=== PATIENT | female | born 1980 | race Caucasian/White ===

== ENCOUNTER 2021-02-11 16:54 | Emergency (ER) | payer BC ==
--- NOTE | 2021-02-11 19:50 | RAD REPORT ---
EXAM DESCRIPTION: RAD - Chest Single View - 02/11/2021 7:36 pm CLINICAL HISTORY: Chest pain;Palpitations COMPARISON: None TECHNIQUE: AP portable chest image was obtained 02/11/2021 7:36 pm . FINDINGS: Lungs are clear. Heart and vasculature are normal. No measurable pleural effusion and no p neumothorax. No acute bony abnormality seen. No acute aortic findings suspected. IMPRESSION: No acute cardiopulmonary process.
[2021-02-11 19:53] LABS: Urine Blood Trace-intact (Negative); Urine Glucose Negative (Negative); Urine Protein Negative (Negative)
[2021-02-11 20:01] LABS: ALT/SGPT 64 U/L (12-78); AST/SGOT 40 U/L (15-37); Albumin 4.2 g/dL (3.4-5.0); Alkaline Phosphatase 62 U/L (45-117); BUN Blood Urea Nitrogen 16 mg/dL (7-18); Bicarbonate 26 mmol/L (21-32); Bilirubin Direct 0.2 mg/dL (0-0.2); Bilirubin Total 0.7 mg/dL (0.2-1.0); Glucose Level 89 mg/dL (74-106); Magnesium 2.2 mg/dL (1.8-2.4); NT PRO-BNP 23 pg/mL (<125); Potassium 3.8 mmol/L (3.5-5.1); Protein, Total 7.7 g/dL (6.4-8.2); Sodium Level 140 mmol/L (136-145); Troponin (Emerg Dept Use Only) < 0.02 ng/mL (0.0-0.045)
[2021-02-11 20:03] LABS: Protime INR 1.09
[2021-02-11 20:05] LABS: Absolute Lymphocytes (CBC) 1.9 K/uL (0.7-4.9); Basophils % 0.9 % (0-1.3); Hematocrit 42.1 % (36.0-45.0); Lymphocytes % 20.9 % (15.3-44.8); MPV 10.6 fL (7.6-11.3); RBC Red Blood Cell Count 4.94 M/uL (3.86-4.86)
[2021-02-11] MEDS ORDERED: METOPROLOL TAR 25 MG TAB ONE (20:52)
[2021-02-11] MEDS ORDERED: NA CHLORIDE 0.9% 1,000 ML ONE ×2 (20:53→22:05)
--- NOTE | 2021-02-11 21:12 | RAD REPORT ---
EXAM DESCRIPTION: CT - Chest For Pe Angio - 02/11/2021 9:02 pm CLINICAL HISTORY: Chest pain;SOB;Palpitations COMPARISON: Chest Single View dated 02/11/2021 TECHNIQUE: Dynamically enhanced 3 mm thick images of the chest were obtained during administration o f approximately 150mL Isovue 370 IV contrast. Coronal and oblique MIP reconstruction images were gene rated and reviewed. Exam utilizes a protocol to evaluate the pulmonary arterial tree. All CT scans are performed using dose optimization technique as appropriate and may include automated exposure control or mA/KV adjustment according to patient size. FINDINGS: No pulmonary emboli are identified. The aorta as imaged shows no acute or suspicious finding. No pericardial thickening or effusion. No infiltrate or mass in the lung parenchyma. No pleural effusion or pleural thickening. No mediastinal or hilar suspicious masses. No chest wall masses or abnormal axillary lymphadenopathy. Limited upper abdomen imaging shows diffuse fatty infiltration of the liver. IMPRESSION: No pulmonary emboli identified. No other significant or suspicious findings.
--- NOTE | 2021-02-11 22:40 | ER ---
Nurse's Notes [facility] Name: Maame Field Age: 40 yrs Sex: Female : 1980 Arrival Date: 02/11/2021 Time: 16:56 Bed 7 Private MD: Diagnosis: Palpitations Presentation: 02/11 17:09 Chief complaint: Patient states: my heart is racing and my blood pressure is pretty tw2 high, i did talk to my side door man and send him a report by my watch and he said it was fine except my heart rate, but there is no reason for it to be that high, i have had some tightness in my chest. Coronavirus screen: At this time, the client does not indicate any symptoms associated with coronavirus-19. Ebola Screen: Patient denies travel to an Ebola-affected area in the 21 days before illness onset. Initial Sepsis Screen: Does the patient meet any 2 criteria? HR > 90 bpm. No. Patient's initial sepsis screen is negative. Does the patient have a suspected source of infection? No. Patient's initial sepsis screen is negative. Risk Assessment: Do you want to hurt yourself or someone else? Patient reports no desire to harm self or others. Onset of symptoms was February 11, 2021. 17:09 Method Of Arrival: Ambulatory tw2 17:11 Chief complaint: Patient states: the high heart rate started about 2 hours ago, i have tw2 been having palpitations for 2 weeks, i have a bad shoulder and have had a lumpectomy on that side so it was hard for me to determine what is what. 17:27 Acuity: LITA 2 tw2 Triage Assessment: 17:12 General: Appears well groomed, Behavior is anxious, crying. Pain: Complains of pain in tw2 chest. 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 wh Historical: - Allergies: 17:27 Augmentin (Upset stomach); tw2 - Home Meds: 17:27 cyclobenzaprine 5 mg Oral tab 1 tab 3 times per day [Active]; naproxen 500 mg Oral tab tw2 1 tab 2 times per day [Active]; omeprazole 40 mg Oral cpDR 1 cap once daily [Active]; tramadol 50 mg Oral tab 1 tab every 4-6 hours [Active]; rizatriptan 10 mg oral tab 1 tab [Active]; cholestoff plus 900 mg plant sterols \T\ stanols per serving, 2 capsules once a day [Active]; Vitamin D-3 with Aloe 120-1,000-10 mg-unit-mg oral tab [Active]; Celebrex 200 mg Oral cap 1 cap 2 times per day [Active]; Enbrel 50 mg/mL (0.98 mL) subcutaneous syrg 1 mL once wkly [Active]; metoprolol succinate 25 mg oral Tb24 1 tab once daily [Active]; Zyrtec 10 mg oral cap [Active]; - PMHx: 17:27 high heart rate; palpitations; ankylosing spondylitis; tw2 - PSHx: 17:27 partial hysterectomy; hip scope; lymphectomy LEFT side; tw2 - Immunization history:: Adult Immunizations. - Social history:: Smoking status: Patient denies any tobacco usage or history of. Patient uses alcohol, occasionally. Screenin:42 Abuse screen: Denies threats or abuse. Denies injuries from another. Nutritional mg2 screening: No deficits noted. Tuberculosis screening: No symptoms or risk factors identified. Fall Risk IV access (20 points). Assessment: 21:41 General: Appears in no apparent distress. comfortable, Behavior is calm, cooperative. mg2 Pain: Denies pain. Neuro: Level of Consciousness is awake, alert, obeys commands, Oriented to person, place, time, situation. Cardiovascular: Capillary refill < 3 seconds Patient's skin is warm and dry. Cardiovascular: Reports palpitations. Respiratory: Airway is patent Respiratory effort is even, unlabored, Respiratory pattern is regular, symmetrical. GI: No signs and/or symptoms were reported involving the gastrointestinal system. : No signs and/or symptoms were reported regarding the genitourinary system. EENT: No signs and/or symptoms were reported regarding the EENT system. Derm: Skin is intact, is healthy with good turgor, Skin is pink, warm \T\ dry. normal. Musculoskeletal: Circulation, motion, and sensation intact. Capillary refill < 3 seconds. 23:21 Reassessment: Patient appears in no apparent distress at this time. Patient and/or wh family updated on plan of care and expected duration. Pain level reassessed. Patient is alert, oriented x 3, equal unlabored respirations, skin warm/dry/pink. Vital Signs: 17:09 BP 139 / 88; Pulse 138; Resp 19; Temp 97.9(TE); Pulse Ox 100% on R/A; Weight 86.18 kg tw2 (R); Height 5 ft. 6 in. (167.64 cm); 21:40 BP 131 / 87; Pulse 110; Resp 18; Pulse Ox 97% on R/A; mg2 23:22 BP 112 / 83; Pulse 91; Resp 18; Pulse Ox 99% on R/A; wh 17:09 Body Mass Index 30.67 (86.18 kg, 167.64 cm) tw2 ED Course: 16:56 Patient arrived in ED. mr 17:11 Triage completed. tw2 17:27 Arm band placed on. tw2 18:37 John Burgess PA is PHCP. cp 18:37 Pelon Bernla MD is Attending Physician. cp 19:17 Saurabh Koehler MD is Attending Physician. cp 19:36 XRAY Chest (1 view) In Process Unspecified. EDMS 20:00 Patient has correct armband on for positive identification. Placed in gown. Bed in low wh position. Call light in reach. Side rails up X 1. pvc monitor on. Pulse ox on. NIBP on. 20:00 Inserted saline lock: 20 gauge in right antecubital area, using aseptic technique. Blood collected. 20:12 Deidre Alcala, RN is Primary Nurse. bb 20:12 Notified Nurse Practitioner and/or Physician Project Development Director of a critical lab result(s), bb D-Dimer of [address] GAONA notified. 21:02 CT Chest For PE Angio In Process Unspecified. EDMS 21:42 No provider procedures requiring assistance completed. Inserted saline lock:. mg2 23:23 IV discontinued, intact, bleeding controlled, No redness/swelling at site. Administered Medications: 20:37 Drug: NS 0.9% 1000 ml Route: IV; Rate: 1 bolus; Site: right antecubital; 23:24 Follow up: Response: No adverse reaction; IV Status: Completed infusion 20:37 Drug: Metoprolol 25 mg Route: PO; 23:24 Follow up: Response: No adverse reaction 21:46 Drug: NS 0.9% 1000 ml Route: IV; Rate: 1 bolus; Site: right antecubital; mg2 23:23 Follow up: Response: No adverse reaction; IV Status: Completed infusion Outcome: 22:40 Discharge ordered by MD. cp 23:22 Discharged to home ambulatory, with family. 23:22 Condition: stable 23:22 Discharge instructions given to patient, family, Instructed on discharge instructions, follow up and referral plans. POC Demonstrated understanding of instructions, follow-up care, POC 23:24 Patient left the ED. Signatures: Dispatcher [employer] [facility] Rosina Escalante Brenda, RN RN bb John Burgess, JIMENEZ PA Alejandra Quiroz RN RN tw2 Tarik Kaur RN RN Juan Decker RN RN mg2 Corrections: (The following items were deleted from the chart) 17:28 17:09 Acuity: LITA 3 tw2 tw2
--- NOTE | 2021-02-11 22:40 | EDPHYS ---
Physician Documentation [facility] Name: Maame Field Age: 40 yrs Sex: Female : 1980 Arrival Date: 02/11/2021 Time: 16:56 Bed 7 Private MD: ED Physician Saurabh Koehler HPI: 02/11 19:05 This 40 yrs old Female presents to ER via Ambulatory with complaints of High cp Blood Pressure, High Heart Rate. 19:05 The patient has elevated blood pressure and discovered this at home, with a home cp device. Associated signs and symptoms: Pertinent positives: chest pain, shortness of breath, palpitations. Severity of symptoms: At its worst the blood pressure was 139 mm Hg. 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 wh Historical: - Allergies: 17:27 Augmentin (Upset stomach); tw2 - Home Meds: 17:27 cyclobenzaprine 5 mg Oral tab 1 tab 3 times per day [Active]; naproxen 500 mg Oral tab tw2 1 tab 2 times per day [Active]; omeprazole 40 mg Oral cpDR 1 cap once daily [Active]; tramadol 50 mg Oral tab 1 tab every 4-6 hours [Active]; rizatriptan 10 mg oral tab 1 tab [Active]; cholestoff plus 900 mg plant sterols \T\ stanols per serving, 2 capsules once a day [Active]; Vitamin D-3 with Aloe 120-1,000-10 mg-unit-mg oral tab [Active]; Celebrex 200 mg Oral cap 1 cap 2 times per day [Active]; Enbrel 50 mg/mL (0.98 mL) subcutaneous syrg 1 mL once wkly [Active]; metoprolol succinate 25 mg oral Tb24 1 tab once daily [Active]; Zyrtec 10 mg oral cap [Active]; - PMHx: 17:27 high heart rate; palpitations; ankylosing spondylitis; tw2 - PSHx: 17:27 partial hysterectomy; hip scope; lymphectomy LEFT side; tw2 - Immunization history:: Adult Immunizations. - Social history:: Smoking status: Patient denies any tobacco usage or history of. Patient uses alcohol, occasionally. ROS: 19:10 Constitutional: Negative for body aches, chills, fever, poor PO intake. cp 19:10 Eyes: Negative for injury, pain, redness, and discharge. cp Exam: 19:15 Constitutional: The patient appears in no acute distress, alert, awake, cp non-diaphoretic, non-toxic, well developed, well nourished. 19:15 Head/Face: Normocephalic, atraumatic. cp 19:15 Eyes: Periorbital structures: appear normal, Conjunctiva: normal, no exudate, no injection, Sclera: no appreciated abnormality, Lids and lashes: appear normal, bilaterally. 19:15 ENT: External ear(s): are unremarkable, Nose: is normal, Posterior pharynx: Airway: no evidence of obstruction, patent. 19:15 Neck: ROM/movement: is normal, is supple, without pain, no range of motions limitations. 19:15 Chest/axilla: Inspection: normal, Palpation: is normal, no crepitus, no tenderness. 19:15 Cardiovascular: Rate: tachycardic, Rhythm: regular, Edema: is not appreciated, JVD: is not appreciated. 19:15 Respiratory: the patient does not display signs of respiratory distress, Respirations: normal, no use of accessory muscles, no retractions, no splinting, no tachypnea, labored breathing, is not present, Breath sounds: are clear throughout, no decreased breath sounds, no stridor, no wheezing. 19:15 Abdomen/GI: Inspection: abdomen appears normal, Palpation: abdomen is soft and non-tender, in all quadrants. 19:15 Back: pain, that is mild, of the left medial scapular area, ROM is normal. 19:15 Skin: no rash present. 19:15 Neuro: Orientation: to person, place \T\ time. Mentation: is normal, Cerebellar function: is grossly normal, Motor: moves all fours, strength is normal, Sensation: is normal. 19:25 ECG was reviewed by the Attending Physician. cp Vital Signs: 17:09 BP 139 / 88; Pulse 138; Resp 19; Temp 97.9(TE); Pulse Ox 100% on R/A; Weight 86.18 kg tw2 (R); Height 5 ft. 6 in. (167.64 cm); 21:40 BP 131 / 87; Pulse 110; Resp 18; Pulse Ox 97% on R/A; mg2 23:22 BP 112 / 83; Pulse 91; Resp 18; Pulse Ox 99% on R/A; wh 17:09 Body Mass Index 30.67 (86.18 kg, 167.64 cm) tw2 MDM: 18:58 Patient medically screened. cp 19:30 Differential diagnosis: hypertensive crisis, Malignant HTN, cardiac arrythmia, cp electrolyte abnormality, anxiety. 22:40 Data reviewed: vital signs, nurses notes, lab test result(s), EKG, radiologic studies, cp CT scan, plain films. 22:40 Test interpretation: by ED physician or midlevel provider: ECG, plain radiologic cp studies. Counseling: I had a detailed discussion with the patient and/or guardian regarding: the historical points, exam findings, and any diagnostic results supporting the discharge/admit diagnosis, lab results, radiology results, the need for outpatient follow up, a school custodian, to return to the emergency department if symptoms worsen or persist or if there are any questions or concerns that arise at home. Response to treatment: the patient's symptoms have markedly improved after treatment, VSS. Patient reports symptoms improved, and as a result, I will discharge patient, to home to f/u with primary school custodian. 02/11 18:59 Order name: Basic Metabolic Panel cp 02/11 18:59 Order name: CBC with Diff; Complete Time: 20:26 cp 02/11 20:27 Interpretation: Normal except: RBC 4.94. cp 02/11 18:59 Order name: LFT's; Complete Time: 20:26 cp 02/11 18:59 Order name: Magnesium; Complete Time: 20:26 cp 02/11 18:59 Order name: NT PRO-BNP; Complete Time: 20:26 cp 02/11 18:59 Order name: PT-INR; Complete Time: 20:26 cp 02/11 18:59 Order name: Troponin (emerg Dept Use Only); Complete Time: 20:26 cp 02/11 18:59 Order name: XRAY Chest (1 view); Complete Time: 20:26 cp 02/11 18:59 Order name: D-Dimer; Complete Time: 20:26 cp 02/11 18:59 Order name: Basic Metabolic Panel; Complete Time: 20:26 EDMS 02/11 19:53 Order name: Urine Dipstick-Ancillary; Complete Time: 20:26 EDMS 02/11 20:21 Order name: Urine --Ancillary (enter results); Complete Time: 20:50 la1 02/11 20:28 Order name: CT Chest For PE Angio; Complete Time: 21:45 cp 02/11 18:59 Order name: EKG; Complete Time: 19:00 cp 02/11 18:59 Order name: Cardiac monitoring; Complete Time: 19:26 cp 02/11 18:59 Order name: EKG - Nurse/Tech; Complete Time: 19:26 cp 02/11 18:59 Order name: IV Saline Lock; Complete Time: 19:27 cp 02/11 18:59 Order name: Labs collected and sent; Complete Time: 19: cp 02/11 18:59 Order name: O2 Per Protocol; Complete Time: 19:26 cp 02/11 18:59 Order name: O2 Sat Monitoring; Complete Time: 19:26 cp 02/11 18:59 Order name: Urine Dipstick-Ancillary (obtain specimen); Complete Time: 19:53 cp 02/11 18:59 Order name: Urine Test (obtain specimen); Complete Time: 19:53 cp EC:25 Rate is 97 beats/min. Rhythm is regular. HI interval is normal. QRS interval is normal. cp T waves are Inverted in lead aVR. Interpreted by me. Reviewed by me. Administered Medications: 20:37 Drug: NS 0.9% 1000 ml Route: IV; Rate: 1 bolus; Site: right antecubital; 23:24 Follow up: Response: No adverse reaction; IV Status: Completed infusion 20:37 Drug: Metoprolol 25 mg Route: PO; wh 23:24 Follow up: Response: No adverse reaction 21:46 Drug: NS 0.9% 1000 ml Route: IV; Rate: 1 bolus; Site: right antecubital; mg2 23:23 Follow up: Response: No adverse reaction; IV Status: Completed infusion Disposition: 02/12 06:36 Co-signature as Attending Physician, Saurabh Koehler MD. [email or web address] Disposition: 02/11/21 22:40 Discharged to Home. Impression: Palpitations. - Condition is Stable. - Discharge Instructions: Holter Monitoring, Palpitations. - Medication Reconciliation Form, Thank You Letter, Antibiotic Education, Prescription Opioid Use form. - Follow up: Private Physician; When: 2 - 3 days; Reason: Recheck today's complaints. - Problem is new. - Symptoms have improved. Signatures: Dispatcher [employer] EDMS Venkatesh Carreon, CHER-[employer] SUPERINTENDENT WAREHOUSE-Cla1 John Burgess PA PA cp Alejandra Luther RN RN tw2 Tarik Kaur RN RN Juan Decker RN RN [facility] [place], [place] Saurabh Koehler MD MD 7 Corrections: (The following items were deleted from the chart) 02/11 23:24 22:40 02/11/2021 22:40 Discharged to Home. Impression: Palpitations. Condition is wh Stable. Forms are Medication Reconciliation Form, Thank You Letter, Antibiotic Education, Prescription Opioid Use. Follow up: Private Physician; When: 2 - 3 days; Reason: Recheck today's complaints. Problem is new. Symptoms have improved. cp
[2021-02-11 23:40] VITALS: TEMP 97.9
[2021-02-11 23:52] VITALS: BP 112/83; O2SAT 99
--- NOTE | 2021-02-13 07:27 | EKG ---
Test Date: 2021-02-11 Test Time: 19:17:57 Cupola Patcher Helper: ROBINA MEASUREMENT RESULTS: Intervals: Rate: 97 HI: 120 QRSD: 76 QT: 360 QTc: 457 Wallace: P: 18 HI: 120 QRS: 81 T: 62 INTERPRETIVE STATEMENTS: Normal sinus rhythm Normal ECG Compared to ECG 02/11/2021 17:14:59 Sinus tachycardia no longer present Electronically Signed On 02-13-21 07:22:31 CDT by Juvenal Pate
--- NOTE | 2021-02-13 07:27 | EKG ---
Test Date: 2021-02-11 Test Time: 17:14:59 Wind Operations Manager: ROBINA MEASUREMENT RESULTS: Intervals: Rate: 135 FL: 134 QRSD: 70 QT: 304 QTc: 456 Mcwilliams: P: 51 FL: 134 QRS: 72 T: 41 INTERPRETIVE STATEMENTS: Sinus tachycardia Otherwise normal ECG No previous ECG available for comparison Electronically Signed On 02-13-21 07:22:33 CDT by Juvenal Pate
== END 2021-02-11 23:24 | disposition home or self-care (01) ==
LOC: ER 16:54
DX: R00.2 Palpitations (principal); Z88.1 Allergy status to other antibiotic agents
CPT/HCPCS: 96361; 93005 ×2; 85025; 80048; 36415; 83735; 81025; 85610; 85379; 80076; 81003; 84484; 83880; 71275; 71045; 96360; 99284; Q9967; J7030 ×2